=== PATIENT | male | born 1980 | race Hispanic/Latino ===

== ENCOUNTER 2016-10-04 17:59 | Emergency (ER) | payer MEDICAID ==
[2016-10-04 18:10] VITALS: BMI 21.4
[2016-10-04 18:14] VITALS: RESP 16; TEMP 98.8
--- NOTE | 2016-10-04 18:33 | ED PDOC ---
Arrival/HPI - General Chief Complaint: Lower Extremity Problem/Injury Time Seen by Provider: 10/04/16 18:30 Historian: Patient - History of Present Illness Narrative History of Present Illness (Text): 10/04/16 18:30 This 35 yo male with pmh dm, presents to this ED c/o right toes pain since yesterday. Patient stated a heavy rubber object fell on his right foot yesterday. Pain has worsen. Time/Duration: Other (since yesterday) Context: Home Past Medical History - Provider Review Nursing Documentation Reviewed: Yes - Cardiac Hx Cardiac Disorders: No Hx Angina: No - Pulmonary Hx Respiratory Disorders: No - Neurological Hx Neurological Disorder: No - HEENT Hx HEENT Disorder: Yes Hx Glaucoma: Yes - Renal Hx Renal Disorder: No - Endocrine/Metabolic Hx Endocrine Disorders: Yes Hx Diabetes Mellitus Type 1: Yes - Hematological/Oncological Hx Blood Disorders: No - Integumentary Hx Dermatological Disorder: No - Musculoskeletal/Rheumatological Hx Musculoskeletal Disorders: No - Gastrointestinal Hx Gastrointestinal Disorders: No - Genitourinary/Gynecological Hx Genitourinary Disorders: No - Psychiatric Hx Psychophysiologic Disorder: No Hx Substance Use: No - Surgical History Hx Eye Surgery: Yes Family/Social History - Physician Review Nursing Documentation Reviewed: Yes Family/Social History: No Known Family HX Smoking Status: Heavy Smoker > 10 Cigarettes Daily Hx Alcohol Use: No Hx Substance Use: No Allergies/Home Meds Allergies/Adverse Reactions: Allergies Sulfa (Sulfonamide Antibiotics) Allergy (Verified 10/04/16 18:10) ANAPHYLAXIS Home Medications: Home Meds Medication Instructions Recorded Confirmed Insulin Glargine,Hum.rec.anlog 24 units SC .AM 10/04/16 10/04/16 [Lantus] Insulin Lispro [humALOG] 0 units SC AC 10/04/16 10/04/16 Review of Systems - Review of Systems Constitutional: Normal. absent: Fatigue, Weight Change, Fevers Eyes: Normal ENT: Normal Respiratory: Normal Cardiovascular: Normal Gastrointestinal: Normal Genitourinary Male: Normal Musculoskeletal: Other (Foot pain ) Skin: Normal Neurological: Normal Endocrine: Normal Hemo/Lymphatic: Normal Psychiatric: Normal Physical Exam Vital Signs Temp Pulse Resp BP Pulse Ox 10/04/16 20:53 98.8 F 90 16 125/70 98 10/04/16 18:12 98.8 F 95 H 16 135/74 97 Temperature: Afebrile Blood Pressure: Normal Pulse: Regular Respiratory Rate: Normal Appearance: Positive for: Well-Appearing, Non-Toxic, Comfortable Pain Distress: None Mental Status: Positive for: Alert and Oriented X 3 - Systems Exam Head: Present: Atraumatic, Normocephalic Pupils: Present: PERRL Extroacular Muscles: Present: EOMI Conjunctiva: Present: Normal Mouth: Present: Moist Mucous Membranes Neck: Present: Normal Range of Motion Upper Extremity: Present: Normal Inspection, Normal ROM, NORMAL PULSES, Neurovascularly Intact, Capillary Refill < 2s Lower Extremity: Present: NORMAL PULSES, Normal ROM, Tenderness (Mild tenderness over 2nd and 3rd toes of right foot), Swelling, Neurovascularly Intact. No: Edema, CALF TENDERNESS, Shani's Sign, Erythema, Deformity, Temperature Abnormalties Medical Decision Making ED Course and Treatment: 10/04/16 20:25 Re-evaluation. Patient feels better. Discussed results and plan with patient who expresses understanding. All questions answered and there is agreement with the plan to discharge home with instructions. Patient stable for discharge. Return if symptoms persist or worsen. I spoke with Dr. Armstrong Blast Furnace Keeper Helper who review foot x-rays, and he recommended post op shoes, angi tape and to see him tomorrow morning between 9am an 11 am. Patient understood plan, and RICE. Patient was explained the risk of addiction when taking Percocet for pain. He understands risk, but he still requested Percocet for pain. He was recommended to avoid driving or operate machinery when using Percocet Re-evaluation Time: 20:24 Reassessment Condition: Re-examined, Improved - RAD Interpretation Narrative RAD Interpretations (Text): Foot x-rays; (+) phalanx Fx. 3rd, and 4th toes Radiology Orders: 10/04/16 18:31 FOOT RIGHT 3 VIEWS ROUTINE [RAD] Stat Disposition/Present on Arrival - Present on Arrival Any Indicators Present on Arrival: No History of DVT/PE: No History of Uncontrolled Diabetes: No Urinary Catheter: No History of Decub. Ulcer: No History Surgical Site Infection Following: None - Disposition Have Diagnosis and Disposition been Completed?: Yes Diagnosis: Toe fracture Disposition: HOME/ ROUTINE Disposition Time: 20:25 Patient Plan: Discharge Condition: GOOD Discharge Instructions (ExitCare): Toe Fracture (ED) Additional Instructions: Dr. Armstrong is expecting to see you tomorrow between 9 am and 11 am. Take medication as instructed. Return nto emergency if symptoms worsen. Prescriptions: Naproxen 500 mg PO BID #14 tab oxyCODONE/Acetaminophen [Percocet 5/325 mg Tab] 1 ea PO BID PRN #5 tab PRN Reason: Pain, Severe (8-10) Referrals: Froylan Hardy MD [Primary Care Provider] - Follow up with primary Hilario Armstrong DPM [Staff Provider] - Follow up with primary Forms: WORK NOTE
[2016-10-04 20:55] VITALS: BP 125/70; PULSE 90; O2SAT 98
--- NOTE | 2016-10-05 07:36 | RAD ---
PROCEDURE: Right Foot Radiographs. HISTORY: pain COMPARISON: None. FINDINGS: BONES: Minimally displaced fractures are seen in the neck of the 3rd and 4th proximal phalanges JOINTS: Normal. SOFT TISSUES: Normal. OTHER FINDINGS: None. IMPRESSION: Minimally displaced fractures are seen in the neck of the 3rd and 4th proximal phalanges
== END 2016-10-04 20:57 | disposition home or self-care (01) ==
LOC: ED 17:59
DX: S92.511A Displaced fracture of proximal phalanx of right lesser toe(s), initial encounter for closed fracture (principal); W22.8XXA Striking against or struck by other objects, initial encounter; Y92.009 Unspecified place in unspecified non-institutional (private) residence as the place of occurrence of the external cause

== ENCOUNTER 2016-10-10 19:11 | Emergency (ER) | payer MEDICAID ==
[2016-10-10 20:17] VITALS: BP 136/74; PULSE 78; RESP 18; TEMP 98.2; O2SAT 99
[2016-10-10] MEDS ORDERED: Oxycodone/Acetaminophen 5/325 mg Tab PO STA (20:30)
--- NOTE | 2016-10-10 20:33 | ED PDOC ---
Arrival/HPI - General Chief Complaint: Lower Extremity Problem/Injury Time Seen by Provider: 10/10/16 20:21 Historian: Patient - History of Present Illness Narrative History of Present Illness (Text): 10/10/16 20:30 35yo male with right 3rd and 4th toes fracture present to ED for pain. He was seen here on 10/04/16 for the fracture. states he followed up with a Incising Machine Operator and was given Tramadol. He reports that the tramadol is not helping. Came to ED for a stronger pain medication. States he was DC home with #5tabs of Percocet when he was seen here on 10/04/16. He denies any new trauma. Past Medical History - Provider Review Nursing Documentation Reviewed: Yes - Cardiac Hx Cardiac Disorders: No Hx Angina: No - Pulmonary Hx Respiratory Disorders: No - Neurological Hx Neurological Disorder: No - HEENT Hx HEENT Disorder: Yes Hx Glaucoma: Yes - Renal Hx Renal Disorder: No - Endocrine/Metabolic Hx Endocrine Disorders: Yes Hx Diabetes Mellitus Type 1: Yes - Hematological/Oncological Hx Blood Disorders: No - Integumentary Hx Dermatological Disorder: No - Musculoskeletal/Rheumatological Hx Musculoskeletal Disorders: No - Gastrointestinal Hx Gastrointestinal Disorders: No - Genitourinary/Gynecological Hx Genitourinary Disorders: No - Psychiatric Hx Psychophysiologic Disorder: No Hx Substance Use: No - Surgical History Hx Eye Surgery: Yes Family/Social History - Physician Review Nursing Documentation Reviewed: Yes Family/Social History: Unknown Family HX Smoking Status: Heavy Smoker > 10 Cigarettes Daily Hx Alcohol Use: No Hx Substance Use: No Allergies/Home Meds Allergies/Adverse Reactions: Allergies Sulfa (Sulfonamide Antibiotics) Allergy (Verified 10/04/16 18:10) ANAPHYLAXIS Home Medications: Home Meds Medication Instructions Recorded Confirmed Unobtainable 10/10/16 10/10/16 Review of Systems - Physician Review All systems were reviewed & negative as marked: Yes - Review of Systems Constitutional: Normal Eyes: Normal ENT: Normal Respiratory: Normal Cardiovascular: Normal Gastrointestinal: Normal Genitourinary Male: Normal Musculoskeletal: Arthralgias (right 3rd and 4th toes pain) Skin: Normal Neurological: Normal Endocrine: Normal Hemo/Lymphatic: Normal Psychiatric: Normal Physical Exam Vital Signs Reviewed: Yes Vital Signs Temp Pulse Resp BP Pulse Ox 10/10/16 20:14 98.2 F 78 18 136/74 99 Temperature: Afebrile Blood Pressure: Normal Pulse: Regular Respiratory Rate: Normal Appearance: Positive for: Well-Appearing, Non-Toxic, Comfortable Pain Distress: None Mental Status: Positive for: Alert and Oriented X 3 - Systems Exam Head: Present: Atraumatic, Normocephalic Pupils: Present: PERRL Extroacular Muscles: Present: EOMI Conjunctiva: Present: Normal Mouth: Present: Moist Mucous Membranes Neck: Present: Normal Range of Motion Respiratory/Chest: Present: Clear to Auscultation, Good Air Exchange. No: Respiratory Distress, Accessory Muscle Use Cardiovascular: Present: Regular Rate and Rhythm, Normal S1, S2. No: Murmurs Abdomen: Present: Normal Bowel Sounds. No: Tenderness, Distention, Peritoneal Signs Back: Present: Normal Inspection Upper Extremity: Present: Normal Inspection. No: Cyanosis, Edema Lower Extremity: Present: Normal Inspection, Other (Splint and foot boot noted in place). No: Edema Neurological: Present: GCS=15, CN II-XII Intact, Speech Normal Skin: Present: Warm, Dry, Normal Color. No: Rashes Psychiatric: Present: Alert, Oriented x 3, Normal Insight, Normal Concentration Medical Decision Making ED Course and Treatment: 10/11/16 00:50 Pt was advised to f/u with his PMD/Incising Machine Operator for narcotic prescription. - Medication Orders Current Medication Orders: Discontinued Medications Oxycodone/Acetaminophen (Percocet 5/325 Mg Tab) 1 tab PO STAT STA Stop: 10/10/16 20:31 Last Admin: 10/10/16 20:45 Dose: 1 tab Disposition/Present on Arrival - Present on Arrival Any Indicators Present on Arrival: No History of DVT/PE: No History of Uncontrolled Diabetes: No Urinary Catheter: No History of Decub. Ulcer: No History Surgical Site Infection Following: None - Disposition Have Diagnosis and Disposition been Completed?: Yes Diagnosis: Toe fracture Disposition: HOME/ ROUTINE Disposition Time: 20:35 Patient Plan: Discharge Condition: STABLE Discharge Instructions (ExitCare): Toe Fracture (ED) Additional Instructions: Follow up with your Incising Machine Operator Return to ED for any new symptoms Referrals: Hilario Armstrong DPM [Staff Provider] - Follow up with primary
[2016-10-10 20:38] VITALS: BMI 20.7
== END 2016-10-10 20:47 | disposition home or self-care (01) ==
LOC: ED 19:11
DX: S92.511D Displaced fracture of proximal phalanx of right lesser toe(s), subsequent encounter for fracture with routine healing (principal); W22.8XXD Striking against or struck by other objects, subsequent encounter